=== PATIENT | male | born 1990 | race Caucasian/White ===

== ENCOUNTER 2017-05-03 11:10 | Outpatient (CLI) | payer OTHER | END 2017-05-03 11:11 | disposition home or self-care (01) | LOC: LAB.WCP 11:10 | PROVIDERS: ATTEND Family Medicine | DX: A74.9 Chlamydial infection, unspecified (principal) | CPT/HCPCS: 87491; 87591 ==

== ENCOUNTER 2018-02-02 07:24 | Emergency (ER) | payer OTHER ==
--- NOTE | 2018-02-02 07:28 | ED Physician Documentation ---
PD HPI SKIN - Stated complaint Stated Complaint: ALLERGIC REACTION - History of Present Illness Timing - onset: Yesterday Timing - duration: Days (1) Timing - details: Gradual onset, Still present Location: Bodywide (initially his hand.) Quality / character: Itchy, Discolored (red), Raised, Swelling. No: Vesicular, Crusted Associated symptoms: No: Fever, Myalgias, Joint pain Contributing factors: No: Exposed to medication, Exposed to food, Exposed to soap / lotion, Insect bite /sting Similar symptoms before: Has not had sx before Recently seen: Not recently seen Review of Systems Constitutional: denies: Fever, Chills Nose: denies: Rhinorrhea / runny nose, Congestion Throat: denies: Sore throat Respiratory: denies: Dyspnea, Cough, Wheezing GI: denies: Abdominal Pain, Nausea, Vomiting Skin: reports: Rash Musculoskeletal: denies: Joint pain PD PAST MEDICAL HISTORY - Past Medical History Cardiovascular: None Respiratory: None Neuro: None Endocrine/Autoimmune: None - Present Medications Home Medications: Ambulatory Orders Medication Instructions Recorded Confirmed Cetirizine [ZyrTEC] 10 mg PO DAILY #20 tablet 02/02/18 Dexamethasone [Decadron] 4 mg PO DAILY #5 tablet 02/02/18 - Allergies Allergies/Adverse Reactions: Allergies Allergy/AdvReac Type Severity Reaction Status Date / Time latex Allergy Unknown Verified 02/02/18 07:36 PD ED PE NORMAL - Vitals Vital signs reviewed: Yes - General General: Alert and oriented X 3, Well developed/nourished - HEENT HEENT: Moist mucous membranes, Pharynx benign, Other (swelling of upper lip but it does not extend intraoral. ) - Neck Neck: Supple, no meningeal sign, No adenopathy - Cardiac Cardiac: RRR, No murmur - Respiratory Respiratory: Clear bilaterally - Abdomen Abdomen: Soft, Non tender - Derm Derm: Normal color, Warm and dry, Other (diffuse patchy raised, nonvesicular variable sized rash c/w hives. Swelling of hands and right foot noted. ) - Neuro Neuro: Alert and oriented X 3, No motor deficit, Normal speech - Psych Psych: Normal mood, Normal affect Results - Vitals Vitals: Vital Signs - 24 hr 02/02/18 07:25 Temperature 36.0 C L Heart Rate 84 Respiratory 16 Rate Blood Pressure 116/82 H O2 Saturation 99 Oxygen O2 Source Room air PD MEDICAL DECISION MAKING - Sepsis Event Vital Signs: Vital Signs - 24 hr 02/02/18 07:25 Temperature 36.0 C L Heart Rate 84 Respiratory 16 Rate Blood Pressure 116/82 H O2 Saturation 99 Oxygen O2 Source Room air Departure - Departure Disposition: 01 Home, Self Care Condition: Stable Record reviewed to determine appropriate education?: Yes Instructions: ED Allergic Reaction General Other Follow-Up: Gabi Harper MD [Primary Care Provider] - Prescriptions: Cetirizine [ZyrTEC] 10 mg PO DAILY #20 tablet Dexamethasone [Decadron] 4 mg PO DAILY #5 tablet Comments: Use Benadryl every 6-8 hours if needed for short-term highs. Cetirizine long- acting antihistamine daily for the next week or so. Add Decadron steroid daily for the next 5 days. This hopefully will outlast whatever triggered the allergic reaction. It is common enough to not be able to identify the source of the reaction. If it goes away and does not return then no further testing needed per se. If it is resistant to fully resolve or is recurrent in the near future, then allergy testing might be considered. Forms: Activity restrictions
[2018-02-02] MEDS ORDERED: DEXAMETHASONE 10 MG/ML VIAL PO STA (07:55)
[2018-02-02] MEDS ORDERED: CETIRIZINE 10 MG TABLET PO STA (07:55)
[2018-02-02] MEDS ORDERED: diphenhydrAMINE 25 MG CAPSULE PO STA (07:55)
[2018-02-02] MEDS ORDERED: CHERRY SYRUP 10 ML UDC PO ONE (08:00)
[2018-02-02 08:24] VITALS: BP 123/89
== END 2018-02-02 08:25 | disposition home or self-care (01) ==
LOC: ED 07:24
DX: T78.40XA Allergy, unspecified, initial encounter (principal); R21 Rash and other nonspecific skin eruption; R22.41 Localized swelling, mass and lump, right lower limb; R22.30 Localized swelling, mass and lump, unspecified upper limb; R22.0 Localized swelling, mass and lump, head
CPT/HCPCS: 99283; A9270